=== PATIENT | female | born 2005 | race Caucasian/White ===

== ENCOUNTER 2024-04-17 08:26 | Emergency (ER) | payer OTHER, SELFPAY ==
[2024-04-17 08:27] VITALS: BP 129/83; PULSE 81; RESP 14; TEMP 35.7; O2SAT 100; BMI 26.6
[2024-04-17 09:19] LABS: Mucous, Urine 0 SEEN /hpf (<or=2+)
[2024-04-17 09:23] LABS: Color, Urine Red (Yellow); Glucose, Dipstick Normal (Normal); Ketone-Dipstick 15 mg/dl (Negative); Leukocyte Esterase-Dipstick 100 /ul (Negative); Nitrite-Dipstick Positive (Negative); Occult Blood-Urine 250 /ul (Negative); Protein-Dipstick 100 mg/dl (Negative); Urine Clarity Sl. Cloudy (Clear); Urine Urobilinogen 1 mg/dl (Normal)
[2024-04-17] MEDS: Ondansetron 4 MG/2 ML Vial IV (09:27)
--- NOTE | 2024-04-17 09:27 | EDS_ITS ---
HPI History of Present Illness Chief Complaint: Back Narrative Narrative: Patient is a 18-year-old female with no known significant past medical history who presents to the emergency department with a chief complaint of right sided back pain. Patient states that she woke up this morning with right sided back pain and states that she not take anything for the pain prior to arrival. Patient denies any sick contacts. Patient denies any history of kidney stones denies any previous abdominal surgeries. Patient states that she is nauseous and has been vomiting. Patient states that she is not sexually active and states that she is currently on her menstrual cycle. [facility] PFS Medical History Cyclic vomiting syndrome Home Medications ?Medication ?Instructions ?Recorded ?Last Taken ?Type cephalexin 500 mg capsule 500 mg PO Q12H 5 days #10 caps 04/17/24 Unknown Rx ketorolac 10 mg tablet 10 mg PO Q6H PRN pain 3 days #14 04/17/24 Unknown Rx tabs Allergy/AdvReac Type Severity Reaction Status Date / Time No Known Allergies Allergy Verified 04/17/24 09:00 Social History Smoking Status: Never smoker ROS ROS ED ROS Narrative Constitutional: Denies any fevers, chills, headaches, lightness, dizziness Cardiovascular: Denies chest pain or palpitations Respiratory: Denies coughing wheezing shortness of breath Abdomen: Complains of nausea vomiting as noted above and right flank pain : States that she is currently on her menstrual cycle denies any painful urination Neurological: Denies numbness, weakness, tingling Musculoskeletal: Complains of right flank pain as noted above Skin: Denies any rashes or lesions EXAM Physical Exam Narrative Exam Narrative: General: Patient lying in bed rest comfortably did not appear to be in acute distress Head: Atraumatic, normocephalic Eyes: PERRL bilaterally, EOMI bilaterally, no conjunctival injection noted Neck: Soft, supple, trachea midline Cardiovascular: Regular rate and rhythm Respiratory: Clear to auscultation bilaterally Abdomen: Soft, nondistended, nontender to palpation, bowel sounds present x 4 Musculoskeletal: No CVA tenderness noted bilaterally, no midline tenderness palpation of the thoracolumbar spine no step-offs or deformities noted Extremities: +5/5 strength noted in the bilateral upper and lower extremities, radial pulses +2/4 in the bilateral extremities, no pedal edema no exam Neurological: Patient following commands knew that she was at [facility] year is 2024 Skin: Warm, dry, intact no rashes or lesions noted Const Vital Signs: 04/17/24 08:27 04/17/24 10:26 04/17/24 12:00 Temperature 96.2 F L Temperature Source Temporal Pulse Rate 81 78 78 Respiratory Rate 14 Blood Pressure 129/83 H 125/80 H 124/89 H Blood Pressure Mean 98 95 100 Pulse Ox 100 100 100 Oxygen Delivery Method Room Air MDM MDM MDM Narrative Medical decision making narrative: Patient is a 18-year-old female who presents to the emergency department the chief complaint of right-sided back pain. On the differential diagnose includes but not limited to UTI, pyelonephritis, urolithiasis, , viral gastro enteritis. Once workup is obtained reviewed she will be reevaluated. Patient be given Zofran. Patient's CBC reviewed showed no evidence of leukocytosis white blood count was normal at 7.6, hemoglobin 12.6, platelet count was noted to be 256. Patient sodium normal 139, potassium was 3.2, creatinine normal at 0.92. Patient be given 40 mill equivalents of potassium supplementation here in the emergency department. Patient's AST and ALT were 9 and 18 respectively. Patient lipase normal at 20. Patient's urinalysis reviewed and showed positive nitrites, 250 occult blood she is on her menstrual cycle currently and 100 leukocyte esterase. Patient had 5-10 white cells with 5-10 squamous epithelial cells and 2+ bacteria. Patient's test was negative. Patient does not have any uri nary symptoms. Patient CT abdomen pelvis with IV contrast showed questioning of the thickening of the wall of the vermiform appendix without findings to suggest presence of appendicitis. Patient had multiple repeat abdominal exams and has no tenderness to palpation right lower quadrant with the last one being at 1350 p.m. Nonobstructive tiny left renal calculus noted. On reevaluation the patient she was still having pain therefore she was given morphine Reglan. As well as IV fluids. On reevaluation of the patient at 1400 she is feeling much improved she would like to go home at this point time. Patient was advised to follow-up on urine culture results. She was advised to rotate Tylenol and Toradol will be sent to the pharmacy as well as Zofran. Patient was encouraged to ensure adequate hydration. She was encouraged return with worsening symptoms or other concerns. She is agreeable this plan as well as mother at bedside all question concerns answered she is discharged home in stable condition. Lab Data Labs: Laboratory Results - last 24 hr 04/17/24 04/17/24 09:15 09:25 WBC 7.6 RBC 4.30 Hgb 12.6 Hct 39.1 MCV 90.9 MCH 29.3 MCHC 32.2 RDW Std Deviation 43.0 RDW Coeff of Bryan 13.1 Plt Count 256 MPV 9.1 Immature Gran % (Auto) 0.300 Neut % (Auto) 74.7 H Lymph % (Auto) 18.0 L [facility] % (Auto) 6.3 Eos % (Auto) 0.4 Baso % (Auto) 0.3 Absolute Neuts (auto) 5.7 Absolute Lymphs (auto) 1.36 Nucleated RBC % 0 Sodium 139 Potassium 3.2 L Chloride 107 Carbon Dioxide 25.0 Anion Gap 7 BUN 9 Creatinine 0.95 Estim Creat Clear Calc 105.34 Est GFR (MDRD) Af Amer 97 Est GFR (MDRD) Non-Af 80 BUN/Creatinine Ratio 9.5 L Glucose 121 H Calcium 9.1 Total Bilirubin 0.80 AST 9 L ALT 18 Alkaline Phosphatase 73 Total Protein 7.6 Albumin 4.1 Globulin 3.5 Albumin/Globulin Ratio 1.2 Lipase 20 Urine Color Red Urine Clarity Sl. Cloudy Urine pH 5.0 Ur Specific [place] 1.030 Urine Protein 100 H Urine Glucose (UA) Normal Urine Ketones 15 H Urine Occult Blood 250 H Urine Nitrite Positive H Urine Bilirubin 1 H Urine Urobilinogen 1 H Ur Leukocyte Esterase 100 H Urine RBC 50-100 SEEN Urine WBC 5-10 SEEN Ur Squamous Epith Cells 5-10 SEEN Ur Transition Epith Cell 0-5 SEEN Urine Bacteria 2+ Urine Mucus 0 SEEN Urine Test Negative Radiography Diagnostic Testing: Clinical Impression(s) from Imaging Studies Abdomen/Pelvis CT 04/17/24 10:04 IMPRESSION: 1. Question of thickening of the wall of the vermiform appendix, without additional findings seen to suggest the presence of appendicitis. 2. Nonobstructive tiny left renal calculus. One or more dose reduction techniques were used (e.g., Automated exposure control, adjustment of the mA and/or kV according to patient size, use of iterative reconstruction technique). Reading Location: [address] Discharge Plan Triage Chief Complaint: Back ED Provider: Roman Fraser Dx/Rx/DC Orders Clinical Impression: Right flank pain Prescriptions: New cephalexin 500 mg capsule 500 mg PO Q12H 5 Days Qty: 10 0RF ketorolac 10 mg tablet 10 mg PO Q6H PRN (Reason: pain) 3 Days Qty: 14 0RF Rx Instructions: maximum total duration of 5 days from all oral, intranasal, or parenteral formulations Primary Care Provider: Care Physician,No Primary Referrals: Care Physician,No Primary [Primary Care Provider] - Activity Restrictions/Additional Instructions: Follow-up with a primary care physician outpatient setting. Follow-up on urine culture results. Take antibiotics as prescribed until the urine culture results return. Use Tylenol as well as the Toradol prescribed for pain. Use Zofran as needed for nausea. Return with worsening symptoms or any concerns. Print Language: Mongolian Disposition Disposition: Home, Self Care
[2024-04-17 09:30] LABS: Urine Bilirubin Dipstick 1 mg/dL (Negative)
[2024-04-17 09:31] LABS: White Blood Cells 5-10 SEEN /hpf (0-5)
[2024-04-17 09:32] LABS: Bacteria 2+ /hpf (None Seen); Red Blood Cells-Urine 50-100 SEEN /hpf (0-5); Squamous Epithelial Cells - UA 5-10 SEEN /hpf (5-10); Transitional Epithelial - Ur 0-5 SEEN /hpf (0-5)
[2024-04-17 09:33] LABS: Internal QC Validated? YES +Cl - CLEAR BKGD; Pregnancy, Urine Negative Negative
[2024-04-17 09:42] LABS: Absolute Lymphocyte Count 1.36 X10^3/uL (0.83-4.51); Absolute Neutrophil Count 5.7 X10^3/uL (2.0-7.7); Basophil# 0.02 X10^3/uL; Basophil% 0.3 % (0-1); Eosinophil# 0.03 X10^3/uL; Eosinophils% 0.4 % (0-5); Hematocrit 39.1 % (37-47); Hemoglobin 12.6 g/dL (12.0-15.0); Lymphocyte # 1.36 X10^3/ul (0.83-4.51); Mean Corp Hgb Conc 32.2 g/dL (32-36); Mean Corpuscular Hgb 29.3 pg (27.0-32.0); Mean Corpuscular Volume 90.9 fL (81-99); Mean Platelet Vol. 9.1 fl (6.2-12.0); Monocyte# 0.48 X10^3/uL; Monocyte% 6.3 % (0-10); NRBC Flagged by Analyzer 0 % (0-5); Neutrophil # 5.65 X10^3/uL (2.7-7.7); Neutrophil % 74.7 % (47-70); Platelet Count 256 K/mm3 (150-450); RBC Distribution Width CV 13.1 % (11.6-14.6); White Blood Count 7.6 K/mm3 (4.4-11.0)
[2024-04-17 09:55] LABS: ALB/GLOB Ratio 1.2 RATIO (0.9-2.4); AST(SGOT) 9 U/L (15-37); Alanine Aminotransfer ALT/SGPT 18 U/L (13-56); Albumin, Serum 4.1 g/dL (3.2-5.0); Alkaline Phosphatase 73 U/L (45-117); Anion Gap 7 (5-15); BUN 9 mg/dL (7-18); BUN/Creat Ratio 9.5 RATIO (10-20); Calcium,Total 9.1 mg/dL (8.5-10.1); Chloride 107 mmol/L (98-107); Creatinine, Serum 0.95 mg/dL (0.55-1.02); EST Glomerular Filtration Rate 80 mL/min (>60); Est Glom Filt Rate - Afr Amer 97 mL/min (>60); Estimated Creatinine Clearance 105.34 ml/min; Globulin 3.5 g/dL (2.2-4.2); Glucose 121 mg/dL (74-106); Lipase 20 U/L (13-75); Potassium 3.2 mmol/L (3.5-5.1); Protein, Total 7.6 g/dL (6.4-8.2); Sodium Level 139 mmol/L (136-145)
--- NOTE | 2024-04-17 10:04 | CT_ITS ---
PROCEDURE: ABDOMEN/PELVIS WITHOUT CONT TECHNIQUE: CT of the abdomen and pelvis without contrast. COMPARISON: None provided. FINDINGS: The visualized lung bases are unremarkable in appearance. No pleural effusion is seen. No evidence of pneumoperitoneum. No free fluid is seen within the abdomen or the pelvis. No evidence of abdominal aortic aneurysm. A tiny nonobstructive left mid renal calculus is seen (axial image 48). No evidence of hydronephrosis on either side. A mostly empty urinary bladder shows no abnormality. The liver, spleen, pancreas, gallbladder, and adrenal glands show no abnormality. There is a suggestion of thickening of the wall of the vermiform appendix. No free or loculated flui d is seen, no definite edema is seen within adjacent fat. CT/Abdomen/Pelvis without Cont IMPRESSION: 1. Question of thickening of the wall of the vermiform appendix, without additi onal findings seen to suggest the presence of appendicitis. 2. Nonobstructive tiny left renal calculus. One or more dose reduction techniques were used (e.g., Automated exposure contr ol, adjustment of the mA and/or kV according to patient size, use of iterative reconstruction technique). Reading Location: [id number]
[2024-04-17 10:26] VITALS: BP 125/80; PULSE 78; O2SAT 100
[2024-04-17] MEDS: Ketorolac 30 MG/ML Syringe IV (10:27)
--- NOTE | 2024-04-17 11:37 | CM.ED ---
Social work Reason for referral: no PCP Referral source: case find This SW identified patient's lack of PCP and need for resources. This SW entered patient's room, introducing self and role at [facility]. Patient welcomed SW visit and stated feeling a little bit better since arrival to the [facility] ED. Patient confirmed not having a PCP due to having to end with patient's sample grader when patient turned 17. 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 Patient reports hoping to go to law school after graduating and denied needing resources for local PCPs at this time. Patient reports originally being from [place] where patient's sample grader was located. No other needs identified at this time. Teresita Washburn, SUMMER INTERN, [employer]PER[employer]
[2024-04-17 12:00] VITALS: BP 124/89; PULSE 78; O2SAT 100
[2024-04-17] MEDS: Metoclopramide 10 MG/2 ML Vial IV (13:13)
[2024-04-17] MEDS: 0.9% Normal Saline (1000mL) 1,000 ML 999 ML IV (13:13)
[2024-04-17] MEDS: Morphine 4 MG/ML Syringe IV (13:17)
[2024-04-17 14:20] VITALS: BP 122/84; PULSE 79; RESP 19; TEMP 36.6; O2SAT 98
== END 2024-04-17 14:21 | disposition home or self-care (01) ==
PROVIDERS: Emergency Provider Emergency Medicine; Visit Provider Emergency Medicine
DX: R10.9 Unspecified abdominal pain (principal); N20.0 Calculus of kidney
CPT/HCPCS: 74176; 80053; 81001; 81025; 83690; 85025; 87086; 87088; 96361; 96374; 96375; 99283; A4216; J2405